=== PATIENT | female | born 1960 | race Caucasian/White ===

== ENCOUNTER 2019-06-26 09:45 | Day surgery (SDC) | payer BC ==
[~2019-06-26 09:45] MED LIST: PROPOFOL INJ 200 MG/20 ML VIAL IV ONE
[2019-06-26] MEDS ORDERED: PROPOFOL INJ 200 MG/20 ML VIAL IV ONE (12:03)
--- NOTE | 2019-06-26 12:45 | Operative Report ---
Operative Report DATE OF SURGERY: 06/26/19 Operative Report: The risk, benefits and alternatives of the procedure including the risk of bleeding, perforation requiring surgery patient are explained to the patent in detail Time out is called propofol administered rectal exam is done colonoscopy is completed to the cecum all segments are visualized retroflexion performed PREOPERATIVE DIAGNOSIS: Colorectal cancer screening POSTOPERATIVE DIAGNOSIS: Normal screening colonoscopy OPERATION: Diagnostic colonoscopy SURGEON: MAYRA LOMBARDO ANESTHESIA: LMAC TISSUE REMOVED OR ALTERED: none COMPLICATIONS: none ESTIMATED BLOOD LOSS: none INTRAOPERATIVE FINDINGS: diverticulosis without any diverticulitis. internal hemorrhoids PROCEDURE: patient tolerated her procedure well no post procedure complications are noted Patient is discharged in good condition. Discharge date 06/26/2019. Discharge diet: regular Discharge activity: regular 2-3 week follow up 10 year surveillance colonoscopy
[2019-06-26 12:46] VITALS: BP 125/65
== END 2019-06-26 12:46 | disposition home or self-care (01) ==
LOC: END 09:45
PROVIDERS: ATTEND Internal Medicine Gastroenterology
DX: Z12.11 Encounter for screening for malignant neoplasm of colon (principal); Z79.899 Other long term (current) drug therapy
CPT/HCPCS: 45378; 00812; J2704; 812